=== PATIENT | male | born 1965 | race Caucasian/White ===

== ENCOUNTER 2021-06-13 10:44 | Day surgery (SDC) | payer OTHER, SELFPAY ==
[2021-06-05 10:02] VITALS: BMI 31.8
[2021-06-13 11:21] LABS: COVID-19 Test Positive (Negative)
[2021-06-13 11:58] VITALS: BP 143/83; PULSE 83; RESP 16; TEMP 36.1; O2SAT 97
--- NOTE | 2021-06-13 13:25 | P.HPSUR_ITS ---
Pre-Procedural Eval Section A Date of Service: 06/13/21 The patient is an INPATIENT: No Changes since office visit: Yes Cold of Flu in the past 2 weeks, Yes New Medical Problems, Yes Changes in Medication and Yes Patient answered all questions Section B Chief Complaint: screening Details of Present Illness: see h&p Relevant Family History (Specify if Yes): No Relevant Social History: None Present Medications: see Short Stay Collaborative assessment Medical History: Significant History (Covid infection 06/02, now asymptomatic an d 10 days out) History of Previous Operations: No relevant previous surgery Allergies: Allergies Allergy/AdvReac Type Severity Reaction Status Date / Time No Known Allergies Allergy Verified 06/12/21 10:17 Review of Systems Sugical H&P ROS: Negative: Constitution, Cardiovascular, Respiratory, Neurological, Psychiatric, Hem-Onc, Allergic/Immunologic, Gastrointestinal, Genitourinary, Musculoskeletal, Integumentary, Endocrine and Eyes/Ears/Nose/Throat Exam Surgical H&P Exam: Normal: HEENT, Normal: Heart, Normal: Lungs, Normal: Extremities, Normal: Abdomen, Normal: Skin and Normal: Neurological Plan Diagnosis/Plan: Unchanged I have reviewed the history and physical and performed a pertinent physical examination on my patient. No changes have occurred unless specified.
--- NOTE | 2021-06-13 14:07 | P.CONAN_ITS ---
[facility] Past Medical History Medical History Renal calculi Functional capacity: independent ambulation Family History Family history of problems with anesthesia: No Surgical History Surgical History H/O colonoscopy History of ear surgery History of Problems with Anesthesia: No Social History Social History Patient Tobacco Use Status: Tobacco use Unknown Advance Directives: No (unknown-VM message left) Advance Directives Information Provided: Yes (informational brochure mailed) Advance Directives on File: No Meds Allergies Allergy/AdvReac Type Severity Reaction Status Date / Time No Known Allergies Allergy Verified 06/12/21 10:17 Home Medications Medication Instructions Recorded Confirmed Last Taken Type Vitamin C 06/05/21 Unknown History Vitamin D3 06/05/21 06/05/21 Unknown History calcium 06/05/21 Unknown History multivitamin 1 tab PO DAILY 06/05/21 06/05/21 Unknown History Exam Exam Date and Time: June 13, 2021 1407 Height,Weight and Vital Signs: Height 5 ft 7.5 in Weight 93.44 kg Last Vital Signs Temp 97.0 F 06/13/21 11:58 Pulse 83 06/13/21 11:58 Resp 16 06/13/21 11:58 BP 143/83 H 06/13/21 11:58 Pulse Ox 97 06/13/21 11:58 Pertinent Lab Results Pertinent Lab Results: Laboratory Tests 06/13/21 10:57 COVID-19 ([facility]BAR) Positive A COVID-19 Clin Com See Note Airway Mallampati Class: II TM Dist: >3cm Neck ROM: Full Heart: RRR Lungs: CTA Assessment and Plan Final Anesthetic Review Family History of Problems with Anesthesia: No History of Problems with Anesthesia: No ASA Class: III Final Preanesthetic Review: Meds/Allgs Chart Reviewed, Consent Obtained/Reviewed and Anes Risks/Benef Reviewed Patient Risk: Low Procedure Risk: Low Anesthetic Plan Anesthetic Plan: MAC: Disposition: Standard PACU
--- NOTE | 2021-06-13 14:36 | PM.OP ---
Brief Operative Note Date of Service: 06/13/21 Pre-op diagnosis: screening Post-op diagnosis: same (colon polyps, diverticulosis) Procedure: colonoscopy Surgeon: Abdullahi Briceño Anesthesia: MAC Was an Car Shifter used for this Procedure?: No Estimated blood loss (mL): 2 Pathology: other (multiple polyps, see path req) Condition: stable Disposition: other (recovery in endo 2)
[2021-06-13 14:48] VITALS: BP 116/78; PULSE 67; RESP 16; TEMP 36.6; O2SAT 99
[2021-06-13 15:03] VITALS: BP 124/86; PULSE 66; RESP 18; TEMP 36.6; O2SAT 99
--- NOTE | 2021-06-13 15:06 | HO.POSTANES ---
Post Anesthesia Evaluation Post Anesthesia Evaluation Vital Signs: Vital Signs Temp Pulse Resp BP Pulse Ox 06/13/21 15:03 97.9 F 66 18 124/86 99 06/13/21 14:48 97.8 F 67 16 116/78 99 06/13/21 11:58 97.0 F 83 16 143/83 H 97 Anesthesia: Monitored Mental Status: Awake Pain Control: Satisfactory Nausea/Vomiting: None Hydration: Adequate Anesthesia-Related Issues: No Anes. Related Issues
[2021-06-13 15:18] VITALS: O2SAT 99
--- NOTE | 2021-06-13 19:53 | OP_ITS ---
SURGEON: Abdullahi Briceño MD INDICATIONS: Colon cancer screening and prior history of adenomatous colon polyps. PROCEDURE PERFORMED: Colonoscopy to the terminal ileum with snare polypectomy, biopsy and cauterization of colon polyps. MEDICATIONS: Monitored anesthesia care. DESCRIPTION OF PROCEDURE: A history and physical performed. The risks and benefits of the procedure were explained to the patient. An informed consent was obtained. The patient was placed in the left lateral decubitus position. A digital rectal exam was performed and was found to be normal. The Olympus pediatric video colonoscope was introduced into the rectum and advanced to the cecum without difficulty. Abdominal wall pressure was used to assist in advancement of the scope due to looping in the sigmoid. The cecum was identified by transillumination, palpation, and identification of ileocecal valve. Examination was performed. The scope was removed. He tolerated the procedure well and returned to recovery area in stable condition. FINDINGS: The terminal ileum was examined and appeared normal. The visualized colonic mucosa was normal. There was some formed and liquid stool in the sigmoid limiting examination. This was washed and suctioned. Multiple polyps were identified and removed as follows: In the cecum was a less than 5 mm polyp removed with biopsy forceps; at 70 cm was a 6 mm polyp snared and a less than 5 mm polyp cauterized. Next, at 60 cm were 2 polyps, at 55 cm was 1 polyp, at 50 cm were 2 polyps, and at 45 cm was 1 polyp. All of these polyps were less than 10 mm and removed with a combination of snare cautery and biopsy. There was moderate sigmoid diverticulosis. Retroflexed examination showed moderate-sized internal hemorrhoids. IMPRESSION: Multiple colonic polyps as above. RECOMMENDATIONS: Follow up the biopsy results. MD ALVA [facility]/LUIS / [id number] [email or web address]
== END 2021-06-13 15:30 ==
PROVIDERS: Nurse Practitioner; PCP Internal Medicine; Visit Provider Internal Medicine Gastroenterology
PROC: 0DJD8ZZ Inspection of Lower Intestinal Tract, Via Natural or Artificial Opening Endoscopic (ICD-10-PCS; CPT 45378; principal; 2021-06-13 12:50)
DX: Z12.11 Encounter for screening for malignant neoplasm of colon (principal); Z86.010 Personal history of colon polyps; D12.0 Benign neoplasm of cecum; Z20.822 Contact with and (suspected) exposure to COVID-19; D12.4 Benign neoplasm of descending colon; D12.5 Benign neoplasm of sigmoid colon; K57.30 Diverticulosis of large intestine without perforation or abscess without bleeding; K64.8 Other hemorrhoids; Z87.442 Personal history of urinary calculi
CPT/HCPCS: 45385; 45380; 87635; 88305

== ENCOUNTER 2021-11-17 15:51 | Outpatient (REF) | payer OTHER, SELFPAY ==
[2021-11-17 18:18] LABS: MANUAL DIFF FLAG NO
[2021-11-17 18:25] LABS: Basophils Absolute Auto 0.1 X10*3/uL (0.0-0.2); Basophils Percent Auto 1.1 % (0-2); Eosinophils Absolute Auto 0.2 X10*3/uL (0.0-0.4); Eosinophils Percent Auto 1.9 % (0-4); Hematocrit 47.4 % (42.0-52.0); Hemoglobin 15.8 g/dl (14.0-18.0); Imm Gran Abs Auto 0.04 X10*3/uL (0.00-0.03); Imm Gran Pct Auto 0.5 % (0.0-0.4); Lymphocytes Absolute Auto 2.6 X10*3/uL (1.2-4.9); Lymphocytes Percent Auto 33.1 % (20-40); Mean Corpuscular HGB Conc 33.3 g/dl (31.0-36.0); Mean Corpuscular Hemoglobin 31.8 pg (27.0-33.0); Mean Corpuscular Volume 95.4 fL (80.0-98.0); Mean Platelet Volume 11.7 fL (9.4-12.4); Monocytes Absolute Auto 0.5 X10*3/uL (0.1-1.2); Monocytes Percent Auto 6.2 % (2-11); Neutrophils Absolute Auto 4.5 x10*3/uL (2.0-8.3); Neutrophils Percent Auto 57.2 % (45-73); Platelet Count 233 X10*3/uL (160-400); Red Blood Count 4.97 X10*6/uL (4.60-5.80); Red Cell Distribution Width 12.9 % (11.0-16.0); White Blood Count 7.9 X10*3/uL (4.8-10.8)
[2021-11-17 18:36] LABS: Alanine Aminotransferase 31 U/L (0-40); Albumin Level 4.5 g/dL (3.5-5.0); Alkaline Phosphatase 67 U/L (39-117); Anion Gap 12 (12-20); Aspartate Amino Transferase 21 U/L (5-37); Bilirubin Total 0.8 mg/dL (0.0-1.0); Blood Urea Nitrogen 14 mg/dL (9-16); Calcium 9.3 mg/dL (8.4-10.2); Carbon Dioxide 24 mmol/L (22-29); Chloride 106 mmol/L (96-108); Cholesterol 219 mg/dL; Estimated Glomerular Filt Rate > 60; Glucose Random 97 mg/dL (60-115); HDL Cholesterol 55 mg/dL; LDL Cholesterol Calculated 142 mg/dl; Sodium 138 mmol/L (135-145); Total Protein 7.1 g/dL (6.5-8.0); Triglycerides 114 mg/dL
[2021-11-17 18:58] LABS: Prostate Specific Antigen 0.29 ng/mL (<0.05-4.0)
== END 2021-11-17 15:52 | disposition home or self-care (01) ==
LOC: HO.MANLDS 15:51
PROVIDERS: Visit Provider Internal Medicine
DX: Z00.00 Encounter for general adult medical examination without abnormal findings (principal); Z12.5 Encounter for screening for malignant neoplasm of prostate
CPT/HCPCS: 36415; 80053; 80061; 82306; 84153; 85025